=== PATIENT | male | born 1970 | race Caucasian/White ===

== ENCOUNTER 2022-10-28 08:55 | Day surgery (SDC) | payer OTHER ==
[~2022-10-28] VITALS: Ht 172.7 cm; Wt 11.8 kg
[2022-10-28] MEDS ORDERED: fentaNYL citrate 0.05 MG/ML VIAL ONE (10:13)
[2022-10-28] MEDS ORDERED: MIDAZOLAM 5 MG/5 ML VIAL ONE (10:13)
[2022-10-28] MEDS ORDERED: diphenhydrAMINE 50 MG/ML VIAL ONE (10:13)
[2022-10-28] MEDS ORDERED: LIDOCAINE 2% 100 MG/5 ML UJET TP ONE (10:14)
[2022-10-28] MEDS ORDERED: fentaNYL citrate 0.05 MG/ML VIAL IVP ONE (10:55)
[2022-10-28] MEDS ORDERED: diphenhydrAMINE 50 MG/ML VIAL IVP ONE (10:55)
[2022-10-28] MEDS ORDERED: MIDAZOLAM 2 MG/2 ML VIAL IVP ONE (10:55)
== END 2022-10-28 11:55 | disposition home or self-care (01) ==
LOC: MDS 08:55 → MMU 08:59 → MDS 11:55
PROVIDERS: ATTEND Internal Medicine Gastroenterology
DX: Z12.11 Encounter for screening for malignant neoplasm of colon (principal); D12.2 Benign neoplasm of ascending colon; K57.30 Diverticulosis of large intestine without perforation or abscess without bleeding; E11.9 Type 2 diabetes mellitus without complications; Z90.49 Acquired absence of other specified parts of digestive tract; Z79.84 Long term (current) use of oral hypoglycemic drugs; Z79.899 Other long term (current) drug therapy
CPT/HCPCS: 45385; 82948; J1200; J2250; J3010; 88305